=== PATIENT | male | born 1945 | race Caucasian/White ===

== ENCOUNTER 2020-06-07 08:35 | Outpatient (CLI) | payer MEDICARE, OTHER ==
--- NOTE | 2020-06-07 10:43 | MRI ---
MRI LUMBAR SPINE WITH AND WITHOUT CONTRAST: DATE: 06/07/2020 HISTORY: 75-year-old male with low back pain COMPARISON: 02/23/2014 TECHNIQUE: Multiple sequences obtained in axial and sagittal planes, pre and post IV injection of gadolinium-bas ed contrast agent. FINDINGS: There are 5 lumbar-type vertebrae. Vertebral body heights are maintained. No major bone marrow signal abnormality. No major spondylolisthesis. Conus medullaris terminates at lower L1 level. No abnormal enhancement is visualized. T12-L1:Normal L1-2:Slight progression of mild disc space narrowing. Diffuse disc bulge. Mild ligamentum flavum thic kening. Mild central spinal canal stenosis. No high-grade neural foraminal stenosis. L2-3:Slight progression of mild to moderate disc space narrowing. Diffuse disc bulge. Mild degenerati ve facet hypertrophy. Moderate central spinal canal stenosis. Mild right neural foraminal stenosis. Mild to moderate left neural foraminal stenosis. No major interval change. L3-4:Little or no disc space narrowing. Diffuse disc bulge. Slight retrolisthesis of L3 on L4. Mild b ilateral facet DJD. Mild bilateral neural foraminal stenosis. Mild central spinal canal stenosis. No major interval change. L4-5:Moderate disc space narrowing, asymmetrically severe on the left side, where there are mixed Mod ic type I and type II bone marrow endplate changes. Right-sided disc space is relatively well maintained. Diffuse disc bulge. Moderate bilateral facet DJD. Mild bilateral neural foraminal stenosi s. Mild to moderate central spinal canal stenosis. No major interval change. L5-S1:Interval development of mild to moderate disc space narrowing. In addition to the previously de monstrated diffuse disc bulge, there is a superimposed central disc herniation which has become larger now. It indents the thecal sac and compresses the left S1 nerve root against the hypertrophied left facet complex, a new finding. In the contralateral right lateral recess, there is chronic compression of the right S1 nerve root between the disc bulge and the hypertrophied right facet compl ex, with possibly a new 5 mm right synovial cyst contributing to the chronic compression of that nerve root. Overall degree of central spinal canal stenosis is mild. Moderate-severe bilateral facet DJD. Chronic moderate to severe right neural foraminal stenosis. Chronic mild to moderate left neural foraminal stenosis. Left far lateral broad-based disc-osteophyte complex chronically laterally displaces the left L5 nerve root in the left anterior perivertebral space, unchanged. IMPRESSION: 1) lumbar spondylosis with multilevel mild and moderate degenerative disc disease, and lower level fa cet osteoarthrosis. 2) lateral recess stenosis bilaterally at L5-S1, with worsening of impingement of left S1 nerve root between the left paracentral portion of a now larger central disc herniation against the left facet complex; and chronic impingement of right S1 nerve root between disc bulge, right facet complex and p ossible new tiny right synovial cyst. 3) moderate central spinal canal stenosis at L2-3 remains. 4) high-grade right neural foraminal stenosis at L5-S1 is unchanged
== END 2020-06-07 08:36 | disposition home or self-care (01) ==
LOC: TBSIIMAG 08:35
PROVIDERS: ATTEND Neurological Surgery
DX: M54.5 Low back pain (principal); M51.36 Other intervertebral disc degeneration, lumbar region; M47.816 Spondylosis without myelopathy or radiculopathy, lumbar region; M48.061 Spinal stenosis, lumbar region without neurogenic claudication; M48.07 Spinal stenosis, lumbosacral region; M25.80 Other specified joint disorders, unspecified joint; M51.27 Other intervertebral disc displacement, lumbosacral region
CPT/HCPCS: 72158; 82565

== ENCOUNTER 2020-07-19 07:31 | Outpatient (CLI) | payer OTHER ==
[2020-07-19 11:29] LABS: INR-International Normal Ratio 1.1; Prothrombin Time 13.8 sec (12.0-14.7)
[2020-07-19 11:30] LABS: #Basophils 0.1 thou/uL (0.0-0.2); #Eosinphils 0.4 thou/uL (0.0-0.7); #Lymphocytes 1.9 thou/uL (1.20-3.40); #Monocytes 0.7 thou/uL (0.11-0.59); #Neutrophils 3.5 thou/uL (1.40-6.50); %Basophils 1.3 % (0.0-1.0); %Eosinophils 5.9 % (0.0-10.0); %Lymphocytes 28.7 % (21.0-51.0); %Monocytes 11.1 % (0.0-10.0); Hemoglobin 14.7 g/dL (14.0-18.0); Mean Corpuscular HGB CONC 31.9 g/dL (32.0-36.0); Mean Corpuscular Hemoglobin 26.8 pg (27.0-31.0); Mean Platelet Volume 7.6 fL (7.4-10.4); Platelet Count 229 thou/uL (130-400); RBC Distribution Width 13.6 % (11.5-14.5); Red Blood Cell (RBC) Count 5.48 mill/uL (4.70-6.10); White Blood Cell (WBC) Count 6.5 thou/uL (4.8-10.8)
[2020-07-19 12:01] LABS: Bacteria/HPF None Seen HPF (None Seen); Bilirubin Negative (Negative); Blood, Urine Negative (Negative); Clarity Clear (Clear); Glucose, Urine (Dipstick) Normal (Negative); Ketone, Urine Negative (Negative); Leukocyte 75 Leu/uL (Negative); Nitrite Negative (Negative); Protein, Urine (Dipstick) Negative (Neg-Trace); RBC/HPF 0-3 HPF (0-3); Specific Gravity, Urine 1.016 (1.002-1.036); Squamous Epithelial None Seen HPF (0-3); Urobilinogen Normal mg/dL (Less than 2); pH, Urine 7.5 (5.0-9.0)
[2020-07-19 12:06] LABS: Anion Gap 12 mmol/L (10-20); BUN (Urea Nitrogen) 15 mg/dL (8.4-25.7); Calc. Creatinine Clearance 0 mL/min (70-130); Calcium 8.9 mg/dL (7.8-10.44); Carbon Dioxide 26 mmol/L (23-31); Chloride 104 mmol/L (98-107); Estimated GFR-MDRD 70; Glucose 84 mg/dL (83-110); Sodium 138 mmol/L (136-145)
[2020-07-19 17:53] LABS: SARS-CoV-2 MS2 Positive; SARS-CoV-2 N Gene Negative; SARS-CoV-2 S Gene Negative; SARS-CoV-2 by NAA Not Detected (NotDetected); SARS-CoV-2 orf1ab Negative
== END 2020-07-19 07:32 | disposition home or self-care (01) ==
LOC: LABBT 07:31
PROVIDERS: ATTEND Orthopaedic Surgery
DX: Z01.818 Encounter for other preprocedural examination (principal); M17.0 Bilateral primary osteoarthritis of knee; Z20.828 Contact with and (suspected) exposure to other viral communicable diseases
CPT/HCPCS: 80048; 81001; 85025; 85610; 87081; 87635; 93005; 93010; U0003

== ENCOUNTER 2020-07-23 05:39 | Day surgery (SDC) | payer OTHER, MEDICARE ==
[2020-07-19 12:04] VITALS: BMI 30.4
[2020-07-23] MEDS ORDERED: Tranexamic Acid 1,000 MG/10 ML VIAL ONE (06:00)
[2020-07-23] MEDS ORDERED: Sodium Chloride 0.9% 100 ML ONE (06:01)
[2020-07-23] MEDS ORDERED: Vancomycin 1.5 GRAM/300 ML BAG ONE (06:01)
[2020-07-23] MEDS ORDERED: Bupivacaine PF 0.5% 30 ML VIAL ONE (06:26)
[2020-07-23] MEDS ORDERED: methylPREDNISolone Acetate 40 mg/ml Vial ONE (06:26)
[2020-07-23] MEDS ORDERED: Lidocaine 1% (PF) 30 ML VIAL ONE (06:26)
[2020-07-23] MEDS ORDERED: Fentanyl 100 MCG/2 ML VIAL ONE ×3 (06:27→09:20)
[2020-07-23] MEDS ORDERED: Midazolam HCl 2 mg/2 ml Vial ONE (06:28)
[2020-07-23] MEDS ORDERED: traMADol HCl 50 MG TAB PO PRN ×2 (06:43)
[2020-07-23] MEDS ORDERED: Zolpidem Tartrate 5 MG TAB PO PRN ×2 (06:43→07:20)
[2020-07-23] MEDS ORDERED: Ropivacaine HCl/PF 250 ML in Premix Bag 1 BAG NERVE BLCK SCH (06:43)
[2020-07-23] MEDS ORDERED: Ondansetron PF 4 MG/2 ML Vial IVP PRN ×2 (06:43→07:20)
[2020-07-23] MEDS ORDERED: HYDROcodone/Acetaminophen 10/325 mg Tablet PO PRN (06:43)
[2020-07-23] MEDS ORDERED: Promethazine HCl 25 MG/ML VIAL IM PRN ×3 (06:43→08:52)
[2020-07-23] MEDS ORDERED: Fentanyl 100 MCG/2 ML VIAL IV PRN (06:44)
[2020-07-23] MEDS ORDERED: Acetaminophen 325 MG TAB PO PRN (07:20)
[2020-07-23] MEDS ORDERED: diphenhydrAMINE 25 MG CAP PO PRN (07:20)
[2020-07-23] MEDS ORDERED: Tranexamic Acid 1,000 MG in Sodium Chloride 0.9% 100 ML IVPB SCH (07:30)
[2020-07-23] MEDS ORDERED: Vancomycin HCl 1.5 GM in Sodium Chloride 0.9% 250 ML 300 ML IVPB SCH ×2 (07:30→19:00)
[2020-07-23] MEDS ORDERED: Ondansetron HCl/PF 4 MG/2 ML Vial IVP PRN (08:52)
[2020-07-23] MEDS ORDERED: Promethazine HCl 25 MG/ML VIAL SLOW IVP PRN (08:52)
--- NOTE | 2020-07-23 10:00 | OP ---
DATE OF PROCEDURE: 07/23/2020 PREOPERATIVE DIAGNOSIS: Bilateral knee arthritis with the right being worse than the left. POSTOPERATIVE DIAGNOSIS: Bilateral knee arthritis with the right being worse than the left. PROCEDURES PERFORMED: 1. Right total knee replacement using [employer] pinless navigation. 2. Left knee corticosteroid injection. MUSIC ENGINEER: Trenton Kwok PA-C ANESTHESIA: The patient did have a general anesthetic, had a preoperative block to the right leg. IMPLANTS: To the right knee, [employer] total knee system. The femur was a size 5 cruciate-retaining femur. We used a size 6 primary tibial baseplate. We used a 6 x 9 mm CS X3 tibial bearing and an asymmetric 32 x 10 X3 patella. DISPOSITION: He did go to recovery room in stable condition. INDICATIONS: This is a very active 75-year-old male, who is presenting for a right knee replacement and a left knee steroid injection secondary to longstanding knee arthritis. At this time, he has failed nonoperative treatment and wished to have the knee replaced. PROCEDURE IN DETAIL: The left knee was cleaned with alcohol and a local with 80 mg of Depo-Medrol was injected into the left knee without any complication. After all appropriate consent forms were explained and signed, the patient was taken back to the operating room and at this time was given general anesthetic. Once the level of anesthesia was appropriate, a well-padded tourniquet was placed on the right leg, and the leg was then prepped and draped in standard surgical fashion. The limb was exsanguinated and tourniquet taken up to 300 mmHg. Midline incision was made with a 10 blade down through the skin and subcutaneous tissue. Bovie electrocautery was used to coagulate any brisk venous bleeding. A new blade was used to make a medial parapatellar arthrotomy. Small subperiosteal release was performed medially and excess fat pad was removed. The knee was flexed up to gain access to the femur. The femur was navigated and distal femoral resection was made. Epicondylar access was used to align our sizing jig and this was pinned in place. We sized our femur to be a size 5 cruciate-retaining femur. 4:1 cutting block was applied and pinned. Anterior and posterior chamfer cuts were then made. We navigated out our proximal tibia and made our proximal tibial resection. Spreaders were used to remove any posterior osteophytes off the back of the femur as well as remaining meniscal tissue. A long alignment robert was then used to achieve correct rotation of our tibial baseplate and we used a size 6 primary tibial baseplate was chosen. This was pinned in place. We trialed the polyethylene and we used a 6 x 9 mm CS X3 tibial bearing polyethylene gave us full extension and good stability throughout range of motion. Two towel clips and a saw were used to cut our patella. Three lug nuts were drilled and an asymmetric 32 x 10 X3 patella was trialed which sat nicely in the trochlear groove. We then drilled our femur and punched our tibia. All components were removed. The knee was thoroughly irrigated and dried. Cement was mixed into the cement gun on the back table. Components were then placed. The knee was held out in full extension until the cement had dried. All excess bone cement was removed. Multiple #2 Vicryl stitches as well as a Quill were used to close our extensor mechanism. 0 Quill followed by a running Monoderm was then used to close the skin. Surgicel glue was then used on the skin. Once this had dried, soft tissue dressing was applied to the limb, tourniquet was let down, and the toes pinked up nicely. The patient was then awakened and taken to the recovery room in stable condition. All counts were correct at the end of the case. The patient did receive preoperative IV antibiotics. The patient was injected with Marcaine for postoperative pain relief. The promotional advertising assistant surgeon was present throughout all important parts of the procedure including the approach, placement of the implants, and the closure. Job ID: [id number]
[2020-07-23] MEDS: Aspirin 81 mg Enteric Coated Tablet PO SCH ×2 (10:02→20:32)
[2020-07-23] MEDS: Ferrous Gluconate 324 MG TAB PO SCH ×2 (10:02→20:32)
[2020-07-23] MEDS: Multivitamin W/ Minerals 1 TAB PO SCH (10:02)
[2020-07-23] MEDS: Senokot S 8.6-50 MG TAB PO SCH ×2 (10:03→20:35)
[2020-07-23] MEDS: Ketorolac Tromethamine 30 MG/ML VIAL IVP SCH ×3 (10:58→23:07)
[2020-07-23] MEDS: Sodium Chloride 0.9% 1,000 ML IV SCH ×2 (10:59→16:21)
[2020-07-23] MEDS ORDERED: Lidocaine 1% PF 5 ML VIAL ONE (11:05)
[2020-07-23] MEDS ORDERED: Ropivacaine 0.2% HCl/PF (40 MG/20 ML VIAL) ONE (11:05)
[2020-07-23] MEDS ORDERED: Bupivacaine HCl 0.5%/Epinephrine 1:200,000/PF 30 ml Vial ONE (11:05)
[2020-07-23] MEDS ORDERED: PROPOFOL 200 MG/20 ML VIAL ONE (11:05)
[2020-07-23] MEDS ORDERED: Ondansetron PF 4 MG/2 ML Vial ONE (11:05)
[2020-07-23] MEDS: CEFAZOLIN 2 GM in Premix Bag 1 BAG IVPB SCH ×2 (14:33→23:00)
[2020-07-23] MEDS ORDERED: Vancomycin 1.5 GRAM/300 ML BAG 1.5 GM in Premix Bag 1 BAG IVPB SCH (18:00)
[2020-07-24] MEDS: Sodium Chloride 0.9% 1,000 ML IV SCH ×2 (02:36→13:23)
[2020-07-24 05:04] LABS: Hemoglobin 12.1 g/dL (14.0-18.0); Mean Corpuscular HGB CONC 32.1 g/dL (32.0-36.0); Mean Corpuscular Hemoglobin 26.5 pg (27.0-31.0); Mean Corpuscular Volume 82.6 fL (78.0-98.0); Mean Platelet Volume 7.4 fL (7.4-10.4); Platelet Count 208 thou/uL (130-400); RBC Distribution Width 13.7 % (11.5-14.5); Red Blood Cell (RBC) Count 4.55 mill/uL (4.70-6.10); White Blood Cell (WBC) Count 11.9 thou/uL (4.8-10.8)
[2020-07-24] MEDS: Ketorolac Tromethamine 30 MG/ML VIAL IVP SCH ×2 (05:12→11:51)
[2020-07-24] MEDS: HYDROcodone/Acetaminophen 10/325 mg Tablet PO PRN ×3 (05:46→14:02)
[2020-07-24] MEDS: Ferrous Gluconate 324 MG TAB PO SCH (08:45)
[2020-07-24] MEDS: Senokot S 8.6-50 MG TAB PO SCH (08:45)
[2020-07-24] MEDS: Multivitamin W/ Minerals 1 TAB PO SCH (08:45)
[2020-07-24] MEDS: Aspirin 81 mg Enteric Coated Tablet PO SCH (08:45)
[2020-07-24] MEDS ORDERED: Ropivacaine 0.2% 550 ML 550 ML NERVE BLCK SCH (13:08)
[2020-07-24 15:48] VITALS: BP 114/66; TEMP 97.9
== END 2020-07-24 17:04 | disposition home or self-care (01) ==
LOC: SDC 05:39 → SJJU 05:40 → SDC 07-24 17:04
PROVIDERS: ATTEND Orthopaedic Surgery
PROC: 0SRC0JZ Replacement of Right Knee Joint with Synthetic Substitute, Open Approach (ICD-10-PCS; principal; 2020-07-23)
PROC: 0M9P3ZZ Drainage of Left Knee Bursa and Ligament, Percutaneous Approach (ICD-10-PCS; principal; 2020-07-23)
PROC: 8E0YXBZ Computer Assisted Procedure of Lower Extremity (ICD-10-PCS; principal; 2020-07-23)
DX: M17.0 Bilateral primary osteoarthritis of knee (principal); M54.16 Radiculopathy, lumbar region; E78.00 Pure hypercholesterolemia, unspecified; K21.9 Gastro-esophageal reflux disease without esophagitis; Z79.899 Other long term (current) drug therapy
CPT/HCPCS: 36415; 85027; A4306; C1713; C1776; J0670; J0690; J1885; J2001; J2250; J2405; J2704; J2795; J2920; J3010; J3370; J3490; J7050; S0020